=== PATIENT | female | born 1940 | race Caucasian/White ===

== ENCOUNTER 2018-07-16 08:54 | Outpatient (CLI) | payer OTHER | END 2018-07-16 17:00 | disposition home or self-care (01) | LOC: TOM 08:54 | DX: K56.600 Partial intestinal obstruction, unspecified as to cause (principal); K56.50 Intestinal adhesions [bands], unspecified as to partial versus complete obstruction; R19.5 Other fecal abnormalities ==

== ENCOUNTER 2024-08-15 09:57 | Outpatient (CLI) | payer OTHER | END 2024-08-15 10:55 | disposition home or self-care (01) | LOC: TOM 09:57 | PROVIDERS: ATTEND Internal Medicine Gastroenterology | DX: R10.30 Lower abdominal pain, unspecified (principal) ==